=== PATIENT | female | born 1960 | race Caucasian/White ===

== ENCOUNTER → 2016-10-24 | Outpatient (CLI) | payer OTHER ==
[~2016-10-24] MED LIST: B-12500 MCG PO; CLONAZEPAM 0.50.5 M1 PO; LEVOTHROID100 MC1 PO; LISINOPRIL20 MG PO; NORCO 5-325 TA1 EACH PO; SIMVASTATIN40 MG PO
== END ==
LOC: MRI 07:04
DX: M47.892 Other spondylosis, cervical region (principal)

== ENCOUNTER 2016-11-08 06:54 | Emergency (ER) | payer OTHER ==
[~2016-11-08] VITALS: Ht 160 cm; Wt 95.3 kg
--- NOTE | ~2016-11-08 | EKG ---
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
[2016-11-08 07:28] LABS: ABSOLUTE NEUTROPHILS 6.8 thou/uL (1.4-8.2); BASOPHILS 0.9 % (0.0-2.0); EOSINOPHILS 3.2 % (0.0-3.0); HEMOGLOBIN 14.6 gm/dL (12.0-15.0); LYMPHOCYTES 15.1 % (24.0-44.0); MCH 27.9 pg (26.0-34.0); MCHC 33.2 g/dL (28.0-37.0); MCV 84.1 fL (80.0-100.0); MONOCYTES 7.4 % (1.0-8.0); PLATELET COUNT 195 thou/uL (150-400); POLYS 73.4 % (36.0-66.0); RBC 5.23 mil/uL (4.20-5.00); RDW 14.8 % (10.5-14.5); WBC 9.2 thou/uL (4.0-11.0)
[2016-11-08] MEDS ORDERED: ATORVASTATIN CA40 MG PO (07:31)
[2016-11-08] MEDS ORDERED: LEVOTHYROXINE 0.1 MG PO (07:31)
[2016-11-08] MEDS ORDERED: CYMBALTA30 MG PO (07:32)
[2016-11-08] MEDS ORDERED: ROBAXIN500 MG PO (07:34)
[2016-11-08 07:35] LABS: MANUAL DIFF NO
[2016-11-08 07:37] LABS: ANION GAP 6 mmol/L (7-16); BUN 12 mg/dL (7-18); CALCIUM 9.2 mg/dL (8.5-10.1); CHLORIDE 105 mmol/L (98-107); CO2 28 mmol/L (21-32); CREATININE 0.9 mg/dL (0.6-1.0); GLUCOSE 118 mg/dL (74-106); POTASSIUM 4.3 mmol/L (3.5-5.1); SODIUM 139 mmol/L (136-145)
[2016-11-08 07:45] LABS: ALBUMIN 3.8 g/dL (3.4-5.0); ALKALINE PHOSPHATASE 118 U/L (46-116); DIRECT BILIRUBIN 0.1 mg/dL (<0.1-0.3); SGOT 31 U/L (15-37); SGPT 54 U/L (30-65); TOTAL BILIRUBIN 0.6 mg/dL (<0.1-1.0); TOTAL PROTEIN 7.6 g/dL (6.4-8.2); TROPONIN-I < 0.04 ng/mL (<0.04-0.07)
[2016-11-08 09:55] VITALS: BP 161/94
== END 2016-11-08 09:49 | disposition home or self-care (01) ==
LOC: ER 06:54
PROVIDERS: Emergency Medicine
DX: R07.89 Other chest pain (principal); E78.00 Pure hypercholesterolemia, unspecified; I10 Essential (primary) hypertension; G43.909 Migraine, unspecified, not intractable, without status migrainosus; Z90.710 Acquired absence of both cervix and uterus

== ENCOUNTER → 2016-11-23 | Outpatient (CLI) | payer OTHER ==
[~2016-11-23] VITALS: Ht 160 cm; Wt 96.2 kg
[~2016-11-23] MED LIST changes: +ACETAMINOPHEN325 M1 PO; +ATORVASTATIN CA40 MG PO; +AUGMENTIN 875875 MG PO; +CYMBALTA30 MG PO; +EXCEDRIN CAPLE1 EACH PO; +IBUPROFEN 600600 M1 PO; +LEVOTHYROXINE 0.1 MG PO; +ROBAXIN500 MG PO; +VITAMIN D1000 UNI1 PO
--- NOTE | ~2016-11-23 | HPC ---
[facility] [place] [address] PAIN MANAGEMENT CONSULTATION Name: LUIS OCHOA Room #: [facility].#: [id number] Admission: 11/23/16 Attend Phys: Serina Hoang MD Discharge: Date of : 64 Report #: [id number] THIS REPORT FOR: //name// CC: Serina Carcamo MD DATE OF SERVICE: 11/23/2016 CHIEF COMPLAINT: Neck pain, left shoulder pain, and weakness in the left arm. HISTORY OF PRESENT ILLNESS: The patient is a 56-year-old female who has been referred to the pain clinic for evaluation. The patient has had some problems since June 2016. She describes her pain as very intense, shooting, aching, crushing, throbbing, sharp, tender and continuous. It radiates from her shoulder into her upper neck down the collar bone to the top of her forearm with numbness and weakness involving the left arm. She also has been experiencing headaches. She notes that her pain sometimes improves with the use of rest, ice and medications. She rates her pain as an 8/10. She denies any trauma. She indicates that she does have some arthritis. She has had headaches associated with this worsening of shoulder and neck pain. ALLERGIES: No known drug allergies. MEDICATIONS: Tylenol regular strength p.r.n., Excedrin capsules, ibuprofen 600 mg q.6 hours p.r.n., vitamin D, Augmentin-started after dropping a chair on her great toe with involvement of the toenail, lisinopril 20 mg daily, methocarbamol 500 mg t.i.d. p.r.n., Cymbalta 30 mg, Lipitor 40 mg, Synthroid 0.1 mg, hydrocodone 5/325 p.r.n. PAST MEDICAL HISTORY: hypothyroidism, hypertension, hypercholesterolemia, headaches since the onset of left neck, arm, and shoulder pain. SOCIAL HISTORY: Denies use of recreational drugs. 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 Denies use of tobacco. Denies use of alcoholic beverages. PAST SURGICAL HISTORY: Hysterectomy in 2007, uterine ablation in 2006, tubal ligation in 1985, times 3 in 1985, 1983, and 1980; cholecystectomy in 2008, and skin grafts in 1964 and 1965. REVIEW OF SYSTEMS: Questionnaire 14-point indicates fatigue, headaches, wears glasses, earache/drainage, chest pain/angina, nausea, vomiting, lightheadedness, and insomnia. LABORATORY DATA: MRI of the neck dated 10/24/2016, reveals: 1. C4/5, uncinate degenerative changes are seen, right causes some slight [address] [address] PAIN MANAGEMENT CONSULTATION Name: LUIS OCHOA [id number] Admission: 11/23/16 Attend Phys: Serina Hoang MD Discharge: Date of : 64 Report #: [id number] right lateral recess and neural foraminal narrowing. Canal is at the lower limits of normal. 2. C5/C6, mild diffuse posterior ridging noted. The canal is at the lower limits of normal, measures 1.18 cm without neural foraminal narrowing. 3. C6/C7, mild posterior ridging and uncinate degenerative changes are seen asymmetric to the left. Central canal is mildly narrowed at 1 cm. There is some lateral recess narrowing especially on the left with left-sided neural foraminal narrowing noted. PHYSICAL EXAMINATION: VITAL SIGNS: Blood pressure 140/104, pulse 79, respiratory rate 16, room air saturation is 97%, height 5 feet 3 inches, weight 96 kg, and BMI is 37. HEENT: Appears unremarkable. Does have some soreness in the occipital area and left neck in the levator scapular area. RESPIRATORY: Unremarkable. MUSCULAR: Positive for pain in the left neck and trapezius area. SKIN: No evidence of rash. EXTREMITIES: Forward bending of the neck causes some discomfort at the left shoulder. Lumbar extension noted some increased discomfort in the left shoulder area. Left lateral bending increased pain and discomfort in the left shoulder area as well. Tilting the head to the left caused some increased pain and discomfort in the left neck and shoulder area. Right lateral bending causes increased pulling sensation in the left lateral shoulder area. Deep tendon reflexes are +2 for the left and right brachioradialis, +2 for the biceps tendon, trace for triceps, muscle straight is judged to be 5/5 in the major muscle groups of the upper extremity. The patient notes decreased sensation to pinprick and light touch in the C6/C7 dermatomal distribution. 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 IMPRESSION: 1. Cervical radiculopathy in the C6-C7 distribution on the left side with decreased sensation to pinprick, light touch and division plant engineer strength. 2. Right great toe trauma, status post dropping a chair on it with loosening of the nail and some inflammation, status post Augmentin treatment at this juncture. 3. Hypothyroidism. 4. Hypercholesterolemia. RECOMMENDATIONS: We discussed the treatment option with the patient. Risks and benefits of a cervical epidural steroid injection were discussed. Possible complications were reviewed. The patient is of antibiotic therapy. She will follow up with Dr. Carcamo. When he feels that her antibiotic course has been adequate, she will return to the pain clinic at which time we will consider undergoing a cervical epidural steroid injection to help with the numbness and weakness associated with C6/C7 distribution involving her left arm. We would [facility] [address] [place] [address] PAIN MANAGEMENT CONSULTATION Name: LUIS OCHOA [facility] [id number] Admission: 11/23/16 Attend Phys: Serina Hoang MD Discharge: Date of : 64 Report #: [id number] like to thank you for letting us participate in her care. We hope she continues to improve. By: [id number] Serina Hoang MD /nt
[2016-11-23 08:50] VITALS: BP 140/104
== END ==
LOC: PAIN 07:11
DX: M54.12 Radiculopathy, cervical region (principal); E03.9 Hypothyroidism, unspecified; E78.00 Pure hypercholesterolemia, unspecified; M25.512 Pain in left shoulder; R53.1 Weakness

== ENCOUNTER → 2016-11-30 | Outpatient (CLI) | payer OTHER ==
[~2016-11-30] VITALS: Ht 160 cm; Wt 96.5 kg
--- NOTE | ~2016-11-30 | HPC ---
[facility] [place] [address] PAIN MANAGEMENT CONSULTATION Name: LUIS OCHOAINE Room #: [facility]#: [id number] Admission: 11/30/16 Attend Phys: Serina Hoang MD Discharge: Date of : 64 Report #: [id number] THIS REPORT FOR: //name// CC: Serina Carcamo MD DATE OF SERVICE: 11/30/2016 FOLLOWUP COMPLAINT: Here for an epidural steroid injection in the cervical area. FOLLOWUP HISTORY: The patient is a 56-year-old female who has been seen in the pain clinic because of cervical radiculopathy. She has undergone evaluation at the last visit. Her insurance has provided certification for her to proceed with a cervical epidural steroid injection. PHYSICAL EXAMINATION: VITAL SIGNS: Blood pressure is 128/89, pulse 87, respiratory rate 16, room air saturation 97%. Height 5 feet 3 inches, weight 212 pounds, BMI is 37. MUSCULOSKELETAL: The patient has pain and discomfort which is radiating down into her left shoulder with increased pain and discomfort in her neck and shoulders. She notes increased pain with left lateral bending of her shoulder. The patient has decreased sensation to pinprick, light touch in the C6-C7 dermatomal distribution. IMPRESSION: 1. 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 2. Right great toe trauma, status post dropping of a chair on it with loosening of the nail and some inflammation. 3. Hypothyroidism. 4. Hypercholesterolemia. 5. The patient states that her doctor feels that she is not having any problems with infection. PROCEDURE NOTE: The patient was placed in the prone position. Her neck had been sterilely cleansed with Betadine. Bupivacaine of 0.25% was injected into this area. A 17-gauge Tuohy with loss of resistance technique was used to gain access to the epidural space. There was no CSF, heme or paresthesia. Total of 120 mg triamcinolone was injected. The patient's pain decreased from 6-0 at the time of discharge. She will follow up in the future as [place] [address] PAIN MANAGEMENT CONSULTATION Name: LUIS OCHOA Room #: [facility]#: [id number] Admission: 11/30/16 Attend Phys: Serina Hoang MD Discharge: Date of : 64 Report #: [id number] to thank you for letting us participate in her care. We hope she continues to improve. By: 1317 [id number] Serina Hoang MD /
[2016-11-30 10:11] VITALS: BP 128/89
== END | disposition home or self-care (01) ==
LOC: PAIN 07:11
DX: M54.12 Radiculopathy, cervical region (principal); E03.9 Hypothyroidism, unspecified; E78.00 Pure hypercholesterolemia, unspecified; Z68.37 Body mass index [BMI] 37.0-37.9, adult

== ENCOUNTER → 2017-11-06 | Outpatient (CLI) | payer OTHER | LOC: RAD 11:32 | DX: Z12.31 Encounter for screening mammogram for malignant neoplasm of breast (principal); I10 Essential (primary) hypertension; E78.00 Pure hypercholesterolemia, unspecified ==

== ENCOUNTER → 2017-11-22 | Outpatient (CLI) | payer OTHER | LOC: ULTRA 10:14 | DX: K76.0 Fatty (change of) liver, not elsewhere classified (principal); I10 Essential (primary) hypertension; E78.00 Pure hypercholesterolemia, unspecified; G43.909 Migraine, unspecified, not intractable, without status migrainosus ==

== ENCOUNTER → 2020-05-07 | Outpatient (CLI) | payer OTHER | LOC: ULTRA 09:11 | PROVIDERS: ATTEND Family Medicine | DX: R79.89 Other specified abnormal findings of blood chemistry (principal) ==